=== PATIENT | female | born 1970 | race Caucasian/White ===

== ENCOUNTER 2018-08-23 02:04 | Inpatient (IN) | payer OTHER ==
[~2018-08-23] VITALS: Ht 157.5 cm; Wt 83.1 kg
[~2018-08-23 02:04] MED LIST: ATIVAN1 MG OR; BACTRIM DS1 TAB PO; CLOBETASOL0.051 EX; DOVONEX0.0051 EX; ELAVIL10 MG OR; ESTRATEST OR; HYDROCHLOROT12.5 MG OR; KLONOPIN1 MG OR; LISINOP/HCTZ1 TA1 OR; LORTAB5 OR; LOTENSIN HCT1 TA3 OR; NORCO1 TA1 PO; PREMARIN1.25 MG OR; PREVACID15 M1 OR; TOPAMAX50 MG PO; ZESTRIL20 MG OR; ZOFRAN ODT4 MG OR; ZOFRAN4 M1 OR
--- NOTE | 2018-08-23 02:04 | NUR ---
PT TO ROOM 10 BY EMS FOR ABDOMINAL PAIN THAT STARTED 3 HOURS AGO.
[2018-08-23 02:43] LABS: IMMATURE GRANULOCYTES 0.6 % (0.0-5.0); MEAN CELL VOLUME 88.9 fL CALC (80.0-100.0); MEAN CORPUSCULAR HGB 29.8 pG CALC (26.0-32.0); MEAN CORPUSCULAR HGB CONC 33.5 g/L CALC (32.0-36.0); NEUT# 5.82 thou/uL (2.00-7.15); RED BLOOD COUNT 5.68 mill/uL (4.20-5.60); RED CELL DISTRI WIDTH 13.2 % (11.5-15.5)
[2018-08-23 02:44] LABS: HEMATOCRIT 50.5 % (37.0-47.0); HEMOGLOBIN 16.9 g/dl (12.0-16.0)
[2018-08-23] MEDS ORDERED: TRADJENTA5 MG PO (02:47)
[2018-08-23] MEDS ORDERED: XANAX1 MG PO (02:48)
[2018-08-23] MEDS ORDERED: LISINOP/HCTZ1 TA1 PO (02:48)
--- NOTE | 2018-08-23 02:50 | NUR ---
PT STATES PAIN BETTER DOWN TO 4/10.
[2018-08-23 02:52] LABS: AMYLASE 151 u/l (30-110); ANION GAP 18 (6-22 (CALC)); BILIRUBIN, TOTAL 0.6 mg/dL (0.0-1.4); BUN 16 mg/dL (7-17); BUN/CREATININE RATIO 22 (12-20 (CALC)); CARBON DIOXIDE 26 mmol/l (22-30); CHLORIDE 103 mmol/l (95-108); CREATININE 0.7 mg/dL (0.5-1.0); GFR > 60 ML/MIN (>=60 (CALC)); GFR FOR AFR.AMER. > 60 ML/MIN (>=60 (CALC)); LIPASE 718 u/l (23-300); POTASSIUM 4.2 mmol/l (3.5-5.1); SGOT/AST 25 u/l (14-36); SODIUM 143 mmol/l (137-146); TOTAL PROTEIN 8.4 g/dL (6.3-8.2)
[2018-08-23 02:53] LABS: ALBUMIN 5.1 g/dL (3.2-5.0); ALKALINE PHOSPHATASE 85 u/l (38-126)
[2018-08-23 03:53] LABS: URINE BILIRUBIN - DIPSTICK NEGATIVE (NEGATIVE); URINE BLOOD DIPSTICK NEGATIVE (NEGATIVE); URINE COLOR YELLOW; URINE GLUCOSE - DIPSTICK NEGATIVE (NEGATIVE); URINE KETONE NEGATIVE (NEGATIVE); URINE LEUK ESTERASE NEGATIVE (NEGATIVE); URINE NITRITE - DIPSTICK NEGATIVE (Negative); URINE PH 7.5 (4.5-8.0); URINE PROTEIN - DIPSTICK 30 mg/dL (NEG-TRACE); URINE SPECIFIC GRAVITY 1.015
[2018-08-23 03:59] LABS: URINE BACTERIA FEW hpf; URINE MUCUS MODERATE hpf (NONE-FEW); URINE RBC 0-2 RBC/hpf (0-5); URINE SQUAMOUS EPITHELIAL CELL MANY EPI/hpf (0-FEW)
--- NOTE | 2018-08-23 04:27 | NUR ---
RT LISA IN TO GIVE PT ORAL CONTRAST CUPS WITH INSTRUCTIONS. PT ALREADY HAD CT WITH IV CONTRAST.
--- NOTE | 2018-08-23 05:24 | NUR ---
IN TO MEDICATE PT WITH MORPHINE AND PT HAD LARGE AMOUNT OF EMESIS. PT VOMITED UP ALL CONTRAST.
--- NOTE | 2018-08-23 05:28 | NUR ---
ZOFRAN GIVEN. CALL DEY IN REACH. PILLOW GIVEN FOR COMFORT.
--- NOTE | 2018-08-23 06:52 | NUR ---
REPORT RECEIVED FROM TEE ACKERMAN.
--- NOTE | 2018-08-23 07:03 | NUR ---
AT BEDSIDE TO DISCUSS RESULTS.
--- NOTE | 2018-08-23 07:25 | NUR ---
PATIENT INFORMED OF NG TUBE PLACEMENT ORDER, PROCEDURE EXPLAINED. VERBAL UNDERSTANDING.
--- NOTE | 2018-08-23 07:55 | NUR ---
12 FR. NG TUBE PLACED TO RIGHT NARE. PLACEMENT VERIFICATION BY AUSCULTATION AND GASTRIC CONTENT OUPUT VIA NG TUBE. DRAINAGE NOTED TO BE CLEAR WITH BROWN-ORANGE TINT, 150 ML OUT. PATIENT TOLERATED WELL.
--- NOTE | 2018-08-23 08:06 | NUR ---
ATTEMPT MADE TO CALL REPORT, SPOKE TO MONALISA. NURSE NOT AVAILABLE WILL CALL BACK.
--- NOTE | 2018-08-23 08:25 | NUR ---
CALL BACK FROM . INFORMED OF PATIENT REQUEST FOR PAIN MEDICATION AND UPDATE GIVEN ON PATIENT. VERBAL ORDERS RECEIVED.
--- NOTE | 2018-08-23 09:24 | NUR ---
REPORT GIVEN TO TEE GARCIA.
--- NOTE | 2018-08-23 09:30 | NUR ---
PATIENT REPORTS BEING PAIN FREE.
[2018-08-23 09:32] VITALS: BP 128/85
--- NOTE | 2018-08-23 09:32 | NUR ---
PATIENT TRANSPORTED TO [facility] WITH NG TUBE IN PLACE. IV FLUIDS TO CONTINUE TO INFUSE ON [facility], TEE GARCIA AT BEDSIDE. CARE RELINQUISHED. BELONGINGS SENT WITH PATIENT, PHONE, CLOTHING, SHOES AND PURSE.
[2018-08-23 11:56] VITALS: BP 141/91
--- NOTE | 2018-08-23 12:16 | NUR ---
REPORT RECEIVED FROM JOSE. PT IS RESTING IN BED WITH NO S/S OF DISTRESS NOTED. NG TUBE IN PLACE LOW SUCTION. CALL LIGHT IN REACH.
[2018-08-23 14:00] VITALS: BP 104/70
--- NOTE | 2018-08-23 14:00 | NUR ---
ED CALLED THAT PT TELE READING 45 FOR PULSE. PT IS RESTING IN BED WITH NO S/S OF DISTRESS NOTED. PT STATED THAT THE PAIN MEDICATION HELPED. VS OBTAIN P-55, BP 104/70. PT DENIES NEEDS AT THIS TIME. CALL LIGHT IN REACH.
[2018-08-23 15:39] VITALS: BP 112/61
--- NOTE | 2018-08-23 15:54 | NUR ---
MEDICATED PT WITH CHLORASEPTICPTIC SPRAY FOR HER SORE THROAT. ICE CHIPS PROVIDED. NG TUBE IN PLACE RIGHT NARE WITH LOW SUCTION AND DRAINING LIGHT BROWN FLUID. PT DENIES ANY OTHER NEEDS AT THIS TIME. CALL LIGHT IN REACH.
[2018-08-23 19:25] VITALS: BP 116/75
--- NOTE | 2018-08-23 19:58 | NUR ---
PT IV FLUIDS REPLENISHED AT THIS TIME. PT IS TALKING ON CELLPHONE. WILL FOLLOW-UP NEEDS ARISE AND W/MEDICATIONS ORDERED. CALL LIGHT IS AT BEDSIDE.
--- NOTE | 2018-08-23 22:27 | NUR ---
PT MEDICATED ORDERS PROVIDE. NO S/O DISTRESS, DENIES ANY NEEDS AT THIS TIME.
[2018-08-24 00:23] VITALS: BP 113/74
[2018-08-24 04:55] VITALS: BP 125/72
--- NOTE | 2018-08-24 06:10 | NUR ---
PT MEDICATED ORDERS PROVIDE. NGT DRAINING YELLOW FLUID ON LOW INTERMITTENT SUCTION. PT DENIES ANY OTHER NEEDS AT THIS TIME. CALL LIGHT AT [facility].
[2018-08-24 07:25] LABS: IMMATURE GRANULOCYTES 0.4 % (0.0-5.0); MEAN CELL VOLUME 91.9 fL CALC (80.0-100.0); MEAN CORPUSCULAR HGB 30.2 pG CALC (26.0-32.0); MEAN CORPUSCULAR HGB CONC 32.9 g/L CALC (32.0-36.0); NEUT# 3.56 thou/uL (2.00-7.15); RED BLOOD COUNT 4.54 mill/uL (4.20-5.60); RED CELL DISTRI WIDTH 13.6 % (11.5-15.5)
[2018-08-24 07:26] LABS: HEMATOCRIT 41.7 % (37.0-47.0); HEMOGLOBIN 13.7 g/dl (12.0-16.0)
[2018-08-24 07:43] LABS: ALKALINE PHOSPHATASE 60 u/l (38-126); AMYLASE 59 u/l (30-110); BILIRUBIN, TOTAL 0.7 mg/dL (0.0-1.4); BUN 9 mg/dL (7-17); BUN/CREATININE RATIO 14 (12-20 (CALC)); CARBON DIOXIDE 28 mmol/l (22-30); CHLORIDE 104 mmol/l (95-108); CREATININE 0.7 mg/dL (0.5-1.0); GFR > 60 ML/MIN (>=60 (CALC)); GFR FOR AFR.AMER. > 60 ML/MIN (>=60 (CALC)); LIPASE 129 u/l (23-300); MAGNESIUM 1.9 mg/dL (1.6-2.3); SGOT/AST 17 u/l (14-36); SODIUM 140 mmol/l (137-146)
[2018-08-24 07:45] LABS: ALBUMIN 3.5 g/dL (3.2-5.0); ANION GAP 13 (6-22 (CALC)); POTASSIUM 4.6 mmol/l (3.5-5.1); TOTAL PROTEIN 6.1 g/dL (6.3-8.2)
[2018-08-24 08:00] VITALS: BP 116/64
--- NOTE | 2018-08-24 08:00 | NUR ---
PT IS SEEN RESTING IN THE BED, NG TUBE IN PLACE, NO DISTRESS NOTED. PT STATES THAT THE NG TUBE IS MAKING HER THROAT SORE, ICE CHIPS PROVIDED. BOWEL SOUNDS ARE ACTIVE ALL QUADRANTS, STATED BM EARLY YESTERDAY. NG OUTPUT MINIMAL, PT STATES PAIN IN ABDOMEN IMPROVED SINCE YESTERDAY.
--- NOTE | 2018-08-24 12:00 | NUR ---
PT DISCONNECTED FROM NG SUCTION AND IVF, SHOWERED. PT STATES THAT SHE FEELS MUCH BETTER.
[2018-08-24 12:01] VITALS: BP 137/75
[2018-08-24 16:00] VITALS: BP 134/81
--- NOTE | 2018-08-24 17:42 | NUR ---
PT WITH NEW IV SITE PER INFILTRATE. PT ENCOURAGED TO AMBULATE IN HALLWAY, WHICH CAUSED FALSE READING FROM MONITOR, ER CALLING SEVERAL TIMES. ACCURATE HR GOTTEN FROM PULSE OX ON FLOOR. PT FEELS BETTER AFTER GETTING OUT OF ROOM FOR HER WALK.
[2018-08-24 19:54] VITALS: BP 149/82
--- NOTE | 2018-08-24 20:06 | NUR ---
PT MEDICATED FOR PAIN FROM NGTUBE IN THROAT. PT IS TALKING, DENIES ANY ABD PAIN AT THIS TIME. NG TUBE CHECKED FOR PLACEMENT, PATENT AND DRAINING ON LOW INTERMITTENT SUCTION. IVF RUNNING ORDERS PROVIDE. DENIES ANY OTHER NEEDS AT THIS TIME. CALL LIGHT IN HAND.
--- NOTE | 2018-08-24 22:38 | NUR ---
PT MEDICATED ORDERS PROVIDE FOR BP, IV FLUIDS ARE RUNNING ORDERS PROVIDE. NGT DRAINING YELLOW FLUID ON LOW INTERMITTENT SUCTION. PT DENIES ANY OTHER NEEDS AT THIS TIME.
[2018-08-25 00:06] VITALS: BP 132/78
[2018-08-25 03:43] VITALS: BP 141/92
--- NOTE | 2018-08-25 03:50 | NUR ---
PT MEDICATED FOR PAIN. POC DISCUSSED W/PT. SHE STATES THAT THE NGT MUST COME OUT TODAY ONE WAY OR THE OTHER. PT IS CALM, BUT EXPRESSES BEING EXHAUSTED OF HAVING THE NG TUBE IN. NO OTHER S/O DISTRESS, PT V/S ASSESSED AT THIS TIME. CALL LIGHT AT BEDSIDE.
[2018-08-25 04:52] VITALS: BP 145/93
--- NOTE | 2018-08-25 08:45 | NUR ---
PT REQUESTING NGT AND IV BE REMOVED. PT WISHES TO LEAVE AMA. PT ENCOURAGED TO STAY. LEAVING AMA DISCUSSED, RISKS REVIEWED, ADN PT STATES UNDERSTANDING. JASON LEE NOTIFIED.
--- NOTE | 2018-08-25 09:01 | NUR ---
Patient decides to leave AMA. Multiple attempts made to ecourage patient to remain here for continued treatment. Explained to patient all risks of leaving against medical advice including . Pt verbalized understanding of all risks. Pt also encouraged to return to [facility] at any time, especially if symptoms continue or become worse. Pt verbalized understanding.
== END 2018-08-25 08:50 | disposition left against medical advice (07) | DRG 390 ==
LOC: ED 02:04 → ED-I 06:15 → ED 07:07 → MS2 07:08
PROVIDERS: Family Medicine; Internal Medicine Nephrology; ADMIT Internal Medicine; ATTEND Internal Medicine
DX: K56.609 Unspecified intestinal obstruction, unspecified as to partial versus complete obstruction (principal); I10 Essential (primary) hypertension; E11.9 Type 2 diabetes mellitus without complications; G43.909 Migraine, unspecified, not intractable, without status migrainosus; Z79.84 Long term (current) use of oral hypoglycemic drugs
CPT/HCPCS: J1650; Q9967; S0164

== ENCOUNTER 2021-10-11 11:18 | Emergency (ER) | payer OTHER ==
[2021-10-11] VITALS (8 sets, daily range): BP systolic 103–147; BP diastolic 62–80
[~2021-10-11] VITALS: Ht 157.5 cm; Wt 87.3 kg
[~2021-10-11 11:18] MED LIST changes: +LISINOP/HCTZ1 TA1 PO; +TRADJENTA5 MG PO; +XANAX1 MG PO
[2021-10-11] MEDS ORDERED: AMBIEN5 MG PO (12:47)
[2021-10-11] MEDS ORDERED: HUMIRA PEN40 MG/0.4 SC (12:50)
[2021-10-11 12:59] LABS: HEMATOCRIT 44.2 % (37.0-47.0); HEMOGLOBIN 14.5 g/dl (12.0-16.0); IMMATURE GRANULOCYTES 0.2 % (0.0-5.0); MEAN CELL VOLUME 87.9 fL CALC (80.0-100.0); MEAN CORPUSCULAR HGB 28.8 pG CALC (26.0-32.0); MEAN CORPUSCULAR HGB CONC 32.8 g/dL CAL (32.0-36.0); NEUT# 5.16 thou/uL (2.00-7.15); RED BLOOD COUNT 5.03 mill/uL (4.20-5.60); RED CELL DISTRI WIDTH 13.3 % (11.5-15.5)
[2021-10-11 13:11] LABS: ALBUMIN 4.3 g/dL (3.2-5.0); ALKALINE PHOSPHATASE 79 u/l (38-126); ANION GAP 13 (6-22 (CALC)); BILIRUBIN, TOTAL 0.4 mg/dL (0.0-1.4); BUN 9 mg/dL (7-17); BUN/CREATININE RATIO 14 (12-20 (CALC)); CARBON DIOXIDE 26 mmol/l (22-30); CHLORIDE 105 mmol/l (95-108); CREATININE 0.7 mg/dL (0.5-1.0); GFR > 60 ML/MIN (>=60 (CALC)); GFR FOR AFR.AMER. > 60 ML/MIN (>=60 (CALC)); LIPASE 116 u/l (23-300); POTASSIUM 4.6 mmol/l (3.5-5.1); SGOT/AST 27 u/l (14-36); SODIUM 139 mmol/l (137-146); TOTAL PROTEIN 7.5 g/dL (6.3-8.2)
== END 2021-10-11 14:13 | disposition home or self-care (01) | DRG 605 ==
LOC: ED 11:18
PROVIDERS: Family Medicine
DX: S00.93XA Contusion of unspecified part of head, initial encounter (principal); S16.1XXA Strain of muscle, fascia and tendon at neck level, initial encounter; I10 Essential (primary) hypertension; E11.9 Type 2 diabetes mellitus without complications; V53.5XXA Driver of pick-up truck or van injured in collision with car, pick-up truck or van in traffic accident, initial encounter

== ENCOUNTER 2022-09-17 21:30 | Emergency (ER) | payer OTHER ==
[~2022-09-17] VITALS: Ht 157.5 cm; Wt 79.0 kg
[~2022-09-17 21:30] MED LIST changes: +AMBIEN5 MG PO; +HUMIRA PEN40 MG/0.4 SC
[2022-09-17 23:16] LABS: BASO% 0.1 % (0-3); EOS% 0.4 % (0-8); HEMATOCRIT 41.3 % (37.0-47.0); HEMOGLOBIN 14.1 g/dl (12.0-16.0); IMMATURE GRANULOCYTES 0.1 % (0.0-5.0); LYMPH% 32.8 % (15-41); MEAN CELL VOLUME 86.2 fL CALC (80.0-100.0); MEAN CORPUSCULAR HGB 29.4 pG CALC (26.0-32.0); MEAN CORPUSCULAR HGB CONC 34.1 g/dL CAL (32.0-36.0); MONO% 9.7 % (2-13); NEUT# 5.24 thou/uL (2.00-7.15); NEUT% 56.9 % (42-76); RED BLOOD COUNT 4.79 mill/uL (4.20-5.60); RED CELL DISTRI WIDTH 11.9 % (11.5-15.5)
[2022-09-17 23:21] LABS: URINE BILIRUBIN - DIPSTICK NEGATIVE (NEGATIVE); URINE BLOOD DIPSTICK NEGATIVE (NEGATIVE); URINE COLOR YELLOW; URINE GLUCOSE - DIPSTICK NEGATIVE (NEGATIVE); URINE KETONE NEGATIVE (NEGATIVE); URINE LEUK ESTERASE NEGATIVE (NEGATIVE); URINE NITRITE - DIPSTICK NEGATIVE (Negative); URINE PH 7.5 (4.5-8.0); URINE PROTEIN - DIPSTICK NEGATIVE (NEG-TRACE); URINE UROBILINOGEN - DIPSTICK 0.2 E.U./dL (0.2)
[2022-09-17 23:25] LABS: ALBUMIN 4.1 g/dL (3.2-5.0); ALKALINE PHOSPHATASE 75 u/l (38-126); BILIRUBIN, TOTAL 0.4 mg/dL (0.02-1.3); BUN 13 mg/dL (7-17); BUN/CREATININE RATIO 17 (12-20 (CALC)); CARBON DIOXIDE 25 mmol/l (22-30); CHLORIDE 102 mmol/l (95-108); CREATININE 0.7 mg/dL (0.5-1.0); GFR FOR AFR.AMER. > 60 ML/MIN (>=60 (CALC)); GFR OTHER RACES > 60 ML/MIN (>=60 (CALC)); SGOT/AST 26 u/l (14-36); SODIUM 137 mmol/l (137-146); TOTAL PROTEIN 6.9 g/dL (6.3-8.2)
[2022-09-17 23:32] LABS: ANION GAP 13 (6-22 (CALC)); POTASSIUM 3.4 mmol/l (3.5-5.1)
[2022-09-18 00:51] LABS: ACT PARTIAL THROMBO TIME 26.7 SECONDS (20.0-32.5); PROTHROMBIN TIME 10.4 SECONDS (9.0-12.5)
[2022-09-18 03:19] VITALS: BP 109/72
== END 2022-09-18 03:21 | disposition short-term general hospital (02) | DRG 282 ==
LOC: ED 21:30
PROVIDERS: Emergency Medicine
DX: I21.4 Non-ST elevation (NSTEMI) myocardial infarction (principal); I10 Essential (primary) hypertension; E11.9 Type 2 diabetes mellitus without complications

== ENCOUNTER 2024-09-22 07:57 | Emergency (ER) | payer OTHER ==
[~2024-09-22] VITALS: Ht 157.5 cm; Wt 89.0 kg
[2024-09-22] VITALS (13 sets, daily range): BP systolic 120–165; BP diastolic 52–92
[~2024-09-22 07:57] MED LIST changes: +MIRALAX17 GM PO
[2024-09-22] MEDS ORDERED: DIATRIZOATE MEGLUMINE & SODIUM 30 ML/BTL PO ONE (08:30)
[2024-09-22] MEDS ORDERED: ONDANSETRON HCl 4 MG/2 ML SDV IV ONE (08:45)
[2024-09-22 08:51] LABS: URINE BILIRUBIN - DIPSTICK Negative (NEGATIVE); URINE BLOOD DIPSTICK Negative (NEGATIVE); URINE GLUCOSE - DIPSTICK Negative (NEGATIVE); URINE KETONE Negative (NEGATIVE); URINE LEUK ESTERASE Negative (NEGATIVE); URINE NITRITE - DIPSTICK Negative (Negative); URINE PROTEIN - DIPSTICK Negative (NEG-TRACE); URINE SPECIFIC GRAVITY 1.015; URINE UROBILINOGEN - DIPSTICK 0.2 E.U./dL (0.2)
[2024-09-22 08:51] LABS: BASO% 0.4 % (0-3); EOS% 1.1 % (0-8); HEMATOCRIT 42.8 % (37.0-47.0); HEMOGLOBIN 13.9 g/dl (12.0-16.0); IMMATURE GRANULOCYTES 0.6 % (0.0-5.0); MEAN CELL VOLUME 87.3 fL CALC (80.0-100.0); MEAN CORPUSCULAR HGB 28.4 pG CALC (26.0-32.0); MEAN CORPUSCULAR HGB CONC 32.5 g/dL CAL (32.0-36.0); MONO% 9.5 % (2-13); NEUT# 3.56 thou/uL (2.00-7.15); NEUT% 67.4 % (42-76); RED BLOOD COUNT 4.9 mill/uL (4.20-5.60); RED CELL DISTRI WIDTH 12.9 % (11.5-15.5)
[2024-09-22] MEDS ORDERED: PROMETHAZINE HCL 25 MG/ML AMP IM ONE (08:55)
[2024-09-22 08:59] LABS: URINE COLOR Light yellow
[2024-09-22 09:03] LABS: ALBUMIN 4.1 g/dL (3.2-5.0); BILIRUBIN, TOTAL 0.6 mg/dL (0.02-1.3); CREATININE 0.8 mg/dL (0.5-1.0); POTASSIUM 4.1 mmol/l (3.5-5.1); TOTAL PROTEIN 7.1 g/dL (6.3-8.2)
== END 2024-09-22 11:36 | disposition home or self-care (01) | DRG 392 ==
LOC: ED 07:57
PROVIDERS: Family Medicine
DX: R10.84 Generalized abdominal pain (principal); I10 Essential (primary) hypertension; E11.9 Type 2 diabetes mellitus without complications; E66.01 Morbid (severe) obesity due to excess calories; Z90.710 Acquired absence of both cervix and uterus; Z90.49 Acquired absence of other specified parts of digestive tract
CPT/HCPCS: J2405; J2550; Q9967